=== PATIENT | female | born 1935 | race Caucasian/White ===

== ENCOUNTER → 2019-10-07 11:09 | Outpatient (CLI) | payer MEDICARE, BC | END | disposition home or self-care (01) | LOC: D.RAD 11:09 | PROVIDERS: ATTEND Internal Medicine Gastroenterology | DX: R13.10 Dysphagia, unspecified (principal); R11.0 Nausea; K92.1 Melena; R19.4 Change in bowel habit; R10.84 Generalized abdominal pain ==